=== PATIENT | female | born 1965 | race Caucasian/White ===

== ENCOUNTER 2020-04-08 12:52 | Outpatient (REF) | payer OTHER, SELFPAY ==
[2020-04-08 13:14] LABS: COVID-19 Test Negative (Negative)
== END 2020-04-08 12:53 | disposition home or self-care (01) ==
LOC: HO.EMPCOV 12:52
PROVIDERS: Visit Provider Internal Medicine
DX: Z20.828 Contact with and (suspected) exposure to other viral communicable diseases (principal)
CPT/HCPCS: 36415; 87635; C9803